=== PATIENT | male | born 1960 | race Caucasian/White ===

== ENCOUNTER 2020-10-14 09:49 | Emergency (ER) | payer OTHER ==
[~2020-10-14] VITALS: Ht 180.3 cm; Wt 83.9 kg
[2020-10-14] MEDS ORDERED: METOPROLOL SUCC50 MG PO (10:20)
[2020-10-14] MEDS ORDERED: DILANTIN100 MG PO (10:20)
[2020-10-14] MEDS ORDERED: TOPIRAMATE100 MG PO (10:20)
[2020-10-14] MEDS ORDERED: VYTORIN 10-101 EACH PO (10:20)
--- OUTSIDE RECORDS SUMMARY | 2020-10-14 10:36 | XMS REPORT | Continuity of Care Document ---
Author Author [facility], [place] Address [address] [place] [address] Phone Unavailable Care Team Providers Care Packing Checker Name Role Phone Unavailable Unavailable Problems This patient has no known problems. Allergies, Adverse Reactions, Alerts Allergy Name Allergy Type Status Severity Reaction(s) Onset Date Inacti ve Date Treating Clinician Comments Source No Known Allergies DA Active U 2020-06-21 00:00:00 [facility] Medications This patient has no known medications. Procedures This patient has no known procedures. Results This patient has no known results.
--- NOTE | 2020-10-14 11:01 | Diagnostic Imaging Report ---
EXAM: CT ABDOMEN AND PELVIS WITHOUT CONTRAST FOR RENAL STONES CLINICAL INDICATION: Right lower quadrant pain, nausea TECHNIQUE: CT abdomen and pelvis was performed, without IV or oral contrast, as per department renal stone protocol. Axial, sagittal, and coronal reconstructions were obtained. IV CONTRAST: Not administered, limiting sensitivity of this exam for evaluation of solid visceral organs, vascular structures, and retroperitoneum. ORAL CONTRAST:Not administered, limiting sensitivity of this exam for evaluation of bowel, retroperitoneum, and intraabdominal fluid collections. RADIATION DOSE REDUCTION: This exam was performed according to the departmental dose-optimization program which includes automated exposure control, adjustment of the mA and/or kV according to patient size and/or use of iterative reconstruction technique. COMPARISON: None FINDINGS: LOWER CHEST: No pathologic process in imaged portion of lower chest RIGHT KIDNEY: Mild hydronephrosis and hydroureter. 5.7 mm calculus in the right ureter just above the UVJ. RIGHT URETER: As above LEFT KIDNEY: Normal size and contour. No nephrolithiasis. No hydronephrosis. LEFT URETER: Normal course and caliber. No ureterolithiasis. URINARY BLADDER: Unremarkable. No calculi. LIVER: No pathologic process. GALLBLADDER: Unremarkable BILE DUCTS: No pathologic process. PANCREAS: No pathologic process. SPLEEN: No pathologic process. ADRENALS: No pathologic process. GASTROINTESTINAL TRACT: No pathologic process. APPENDIX: No inflammatory changes in region of appendix.] LYMPH NODES: No lymphadenopathy. PERITONEUM/MESENTERY: No free air, significant free fluid, mass or fluid collection. VESSELS: No vascular abnormality. ADDITIONAL RETROPERITONEAL FINDINGS: None. REPRODUCTIVE ORGANS: No pathologic process. ABDOMINAL AND PELVIC VALENTINO: No pathologic process. MUSCULOSKELETAL: No pathologic process. ADDITIONAL FINDINGS: None. IMPRESSION: Right ureteric calculus just above the UVJ measuring 5.7 mm. There is mild right hydronephrosis and hydroureter with mild perinephric stranding. Standardized Report: [id number]. Signed by: Mejia Plummer MD on 10/14/2020 10:58 AM
--- NOTE | 2020-10-14 11:27 | Emergency Department Note ---
History of Present Illnes History of Present Illness Chief Complaint: Abdominal Complaints History of Present Illness This is a 60 year old male Chief Complaint Comment Pt states rt flank pain intermittantly for several weeks. pt states he saw his pcp and had lab work last month for same, and unknown cause of problem. pt states today his pcp sent him to er. pt aaox4. ambulatory. no n/v/d/f. non covid s/s. cooperative, but incredablly nervous. . Historian: Patient Arrival Mode: Car Onset (how long ago): day(s) (2) Location: RIGHT LOWER Quality: SHARP Radiation: Reports abdomen Severity: moderate Onset quality: gradual Duration (how long): day(s) (2) Timing of current episode: intermittent Progression: waxing and waning Context: Denies recent illness, Denies recent surgery, Denies recent immobilization, Denies recent travel, Denies trauma/injury, Denies new medications, Denies hx of DVT/PE, Denies non-compliance w/ medications, Denies other Relieving factors: none Exacerbating factors: none Associated symptoms: Denies denies other symptoms, Denies confusion, Denies chest pain, Denies cough, Denies diaphoresis, Denies fever/chills, Denies headaches, Denies loss of appetite, Denies malaise, Denies nausea/vomiting, Denies rash, Denies seizure, Denies shortness of breath, Denies syncope, Denies weakness, Denies other Treatments prior to arrival: none Previous service: medications given Past Medical/Family History Physician Review I have reviewed the patient's past medical and family history. Any updates have been documented here. Past Medical History Recent Fever: No Clinical Suspicion of Infectio: No New/Unexplained Change in Ment: No Past Medical History: Hypertension, Seizure Disorder, Anxiety, Hyperlipedemia Social History Smoking Cessation: Never Smoker Counseling Performed: No Alcohol Use: None Any Illegal Drug Use: No Physically hurt or threatened: No Other Any Pre-Existing Lines (PICC,: No Review of Systems Review of Systems Constitutional: Reports no symptoms EENTM: Reports no symptoms Cardiovascular: Reports no symptoms Respiratory: Reports no symptoms Genitourinary: Reports no symptoms Musculoskeletal: Reports no symptoms Integumentary: Reports no symptoms Neurological: Reports no symptoms Psychological: Reports no symptoms Endocrine: Reports no symptoms Hematological/Lymphatic: Reports no symptoms Physical Exam Related Data Allergies: Coded Allergies: No Known Allergies (Unverified , 10/14/20) Triage Vital Signs Vital Signs Date Time Temp Pulse Resp B/P (MAP) Pulse Ox O2 Delivery O2 Flow Rate FiO2 10/14/20 09:50 98.1 103 16 133/93 100 Room Air Vital signs reviewed: Yes Physical Exam CONSTITUTIONAL Constitutional: Present well-developed, Present well-nourished HENT HENT: Present normocephalic, Present atraumatic, Present oropharynx clear/moist, Present nose normal; Absent oropharynx normal, Absent mucosae dry, Absent nasal discharge, Absent nasal congestion, Absent rhinorrhea, Absent oropharyngeal exudate, Absent tonsillar excudate, Absent pharynx abnormal, Absent erythema, Absent dentition normal, Absent dental caries, Absent other HENT L/R: Present left ext ear normal, Present right ext ear normal; Absent left TM normal, Absent right TM normal, Absent left canal normal, Absent right canal normal, Absent left impacted cerumen, Absent right impacted cerumen, Absent left bulging TM, Absent right bulging TM, Absent other EYES Eyes: Reports PERRL, Reports conjunctivae normal; Denies EOM normal, Denies lids normal, Denies left eye discharge, Denies right eye discharge, Denies scleral icterus, Denies other NECK Neck: Present ROM normal; Absent supple, Absent thyromegaly, Absent tracheal deviation, Absent stridor, Absent JVD, Absent cervical adenopathy, Absent carotid bruit, Absent other PULMONARY Pulmonary: Present effort normal, Present breath sounds normal; Absent respiratory distress, Absent rales, Absent rhonchi, Absent chest tenderness, Absent other CARDIOVASCULAR Cardiovascular: Present regular rhythm, Present heart sounds normal, Present capillary refill normal, Present normal rate; Absent irregular rhythm, Absent intact distal pulses, Absent tachycardia, Absent bradycardia, Absent murmur, Absent gallop, Absent friction rub, Absent palpable pulses, Absent strong pulses, Absent weak pulses, Absent LLE edema, Absent RLE edema, Absent other GASTROINTESTINAL Abdominal: Present soft, Present bowel sounds normal, Present tender GENITOURINARY Genitourinary: Present exam deferred; Absent penis normal, Absent rectum normal, Absent prostate normal, Absent guaiac result, Absent penis tenderness, Absent other SKIN Skin: Present warm, Present dry; Absent erythema, Absent pale, Absent rash, Absent jaundiced, Absent bruising, Absent lesion, Absent other MUSCULOSKELETAL Musculoskeletal: Present ROM normal; Absent edema, Absent deformity, Absent tenderness, Absent swelling, Absent other NEUROLOGICAL Neurological: Present alert, Present oriented x 3, Present no gross motor or sensory deficits PSYCHOLOGICAL Psychological: Present mood/affect normal, Present judgement normal Results Laboratory Lab results reviewed: Yes Imaging Imaging results reviewed: Yes Assessment & Plan Medical Decision Making MDM RENAL COLIC APPENDICITIS Reassessment Reassessment BETTER Assessment & Plan Final Impression: (1) Abdominal pain, right lower quadrant (2) Renal colic (3) Hydronephrosis Depart Disposition: HOME, SELF-CARE Last Vital Signs Date Time Temp Pulse Resp B/P (MAP) Pulse Ox O2 Delivery O2 Flow Rate FiO2 10/14/20 09:50 98.1 103 16 133/93 100 Room Air Home Meds Active Scripts Nitrofurantoin Monohyd/M-Cryst (MACROBID 100 MG CAPSULE) 100 Mg Capsule, 100 MG PO BIDWM, #14 CAP Prov:MINDY CONDE MD 10/14/20 Tamsulosin Hcl* (FLOMAX*) 0.4 Mg Cap, 0.4 MG PO DAILY, #10 CAP Prov:MINDY CONDE MD 10/14/20 Ketorolac Tromethamine (TORADOL) 10 Mg Tablet, 1 TAB PO TID for OPAIN, #20 Prov:MINDY CONDE MD 10/14/20 Reported Medications Ezetimibe/Simvastatin (VYTORIN 10-10 MG TABLET) 1 Each Tablet, 1 TAB PO DAILY 10/14/20 Metoprolol Succinate (METOPROLOL SUCCINATE) 50 Mg Tab.er.24h, 100 MG PO DAILY, MG 10/14/20 Phenytoin Sodium Extended (DILANTIN) 100 Mg Capsule, 1 CAP PO QID 10/14/20 Topiramate (TOPIRAMATE) 100 Mg Tablet, 100 MG PO DAILY, #30 TAB 10/14/20 MINDY CONDE MD Oct 14, 2020 11:27
[2020-10-14] MEDS ORDERED: MACROBID 100 M100 MG PO (11:30)
[2020-10-14] MEDS ORDERED: FLOMAX0.4 MG PO (11:30)
[2020-10-14] MEDS ORDERED: KETOROLAC TROME10 MG PO (11:30)
== END 2020-10-14 11:51 | disposition home or self-care (01) ==
LOC: FSED 10:15
DX: R10.31 Right lower quadrant pain (principal); N13.30 Unspecified hydronephrosis; R11.0 Nausea; I10 Essential (primary) hypertension; E78.5 Hyperlipidemia, unspecified; G40.909 Epilepsy, unspecified, not intractable, without status epilepticus; F41.9 Anxiety disorder, unspecified
CPT/HCPCS: 74176; 80048; 80076; 81003; 85025; 99284

== ENCOUNTER → 2020-10-25 | Day surgery (SDC) | payer OTHER ==
[~2020-10-25] MED LIST: ASPIRIN81 MG PO; CALCIUM + VITA1 EACH PO; CEFTRIAXONE SOD 1 GM/NS 50 ML 50 ML IV ONE; COQ-10100 MG PO; DEXAMETHASONE SOD PHOS INJ 4 MG/ML VIAL ONE; DILANTIN100 MG PO; FENTANYL CITRATE/PF 100MCG/2 ML INJ ONE; FLOMAX0.4 MG PO; IOPAMIDOL 300MG/ML 50ML INFUS..BTL IV ONE; KETOROLAC TROME10 MG PO; LIDOCAINE HCL 2% LOCAL INJ 5 ML SDV VIAL INJ ONE; MACROBID 100 M100 MG PO; METOPROLOL SUCC50 MG PO; MIDAZOLAM HCL 2 MG/2 ML VIAL ONE; MULTI-VITAMIN1 EACH PO; NIACIN500 M2 PO; ONDANSETRON HCL INJ 2MG/ML 2ML 2 MG/ML VIAL ONE; PHENYTOIN SODI100 MG PO; PROPOFOL IV EMULSION 10 MG/ML 20 ML VIAL ONE; SEVOFLURANE INHAL SOLN 250 ML PEN BTL ONE; TOPIRAMATE100 MG PO; VITAMIN C1000 MG PO; VITAMIN D3250 MC1 PO; VYTORIN 10-101 EACH PO
[2020-10-25 11:20] VITALS: BP 145/80
== END | disposition home or self-care (01) ==
LOC: OR 08:19
PROVIDERS: ATTEND Urology
DX: N20.1 Calculus of ureter (principal); N13.1 Hydronephrosis with ureteral stricture, not elsewhere classified; Z01.810 Encounter for preprocedural cardiovascular examination; Z01.812 Encounter for preprocedural laboratory examination; Z20.828 Contact with and (suspected) exposure to other viral communicable diseases; R00.1 Bradycardia, unspecified; I10 Essential (primary) hypertension; E78.5 Hyperlipidemia, unspecified; Z79.82 Long term (current) use of aspirin; Z68.32 Body mass index [BMI] 32.0-32.9, adult; Z80.42 Family history of malignant neoplasm of prostate
CPT/HCPCS: 52356; 74420; 88300; 93005; C1758; C2617; J0696; J1100; J2001; J2250; J2405; J2704; J3010; Q9967; U0002